=== PATIENT | female | born 1980 ===

== ENCOUNTER 2019-02-28 23:02 | Emergency (ER) | payer OTHER ==
[2019-02-28] MEDS ORDERED: Ondansetron 4 MG/2 ML SDV IVPUSH ONE (23:31)
[2019-02-28] MEDS ORDERED: Sodium Chloride 0.9% 1,000 ML IV ONE (23:31)
--- NOTE | 2019-02-28 23:47 | EDM.PDOC ---
ED HPI GENERAL MEDICAL PROBLEM - General Stated Complaint: PASSING OUT Time Seen by Provider: 02/28/19 23:10 Source of Information: Reports: Patient History Limitations: Reports: No Limitations - History of Present Illness INITIAL COMMENTS - FREE TEXT/NARRATIVE: Patient presented to the ED because of a brief syncopal episode. She was watching her son being stitched and got then she sytarted feeling dizzy and pass out. there was no LOC and patient c/o dizziness and nausea prior to falling down. - Related Data Allergies Allergy/AdvReac Type Severity Reaction Status Date / Time No Known Allergies Allergy Verified 02/28/19 23:40 Home Meds: Home Meds NK [No Known Home Meds] 02/28/19 [History] ED ROS GENERAL - Review of Systems Review Of Systems: See Below Constitutional: Reports: No Symptoms HEENT: Reports: No Symptoms Respiratory: Reports: No Symptoms Cardiovascular: Reports: No Symptoms Endocrine: Reports: No Symptoms GI/Abdominal: Reports: No Symptoms : Reports: No Symptoms Musculoskeletal: Reports: No Symptoms Skin: Reports: No Symptoms Neurological: Reports: No Symptoms Psychiatric: Reports: No Symptoms Hematologic/Lymphatic: Reports: No Symptoms - Physical Exam Exam: See Below Exam Limited By: No Limitations General Appearance: Alert, WD/WN, No Apparent Distress Ears: Normal External Exam, Normal Canal, Hearing Grossly Normal Nose: Normal Inspection, Normal Mucosa, No Blood Throat/Mouth: Normal Inspection, Normal Lips, Normal Teeth Head Exam: Atraumatic, Normocephalic Neck: Normal Inspection, Supple, Non-Tender, Full Range of Motion Respiratory/Chest: No Respiratory Distress, Lungs Clear, Normal Breath Sounds, No Accessory Muscle Use Cardiovascular: Normal Peripheral Pulses, Regular Rate, Rhythm, No Edema, No Gallop, No JVD, No Murmur GI/Abdominal: Normal Bowel Sounds, Soft, Non-Tender, No Organomegaly Back Exam: Normal Inspection, Full Range of Motion Extremities: Normal Inspection, Normal Range of Motion, Non-Tender, No Pedal Edema, Normal Capillary Refill Psychiatric: Normal Affect, Normal Mood, Tearful Skin Exam: Warm Course - Vital Signs Text/Narrative:: labs reviewed and discussed with patient and her . EKG-NSR saline 1 L bolus zofran 4 mg IV x1 Last Recorded V/S: Last Vital Signs Temp Pulse Resp BP Pulse Ox 97 02/28/19 23:10 - Orders/Labs/Meds Orders: Active Orders 24 hr Category Date Time Status EKG Documentation Completion [RC] ASDIRECTED Care 02/28/19 23:12 Ordered Sodium Chloride 0.9% [Normal Saline] 1,000 ml Med 02/28/19 23:31 Active IV .BOLUS EKG 12 Lead [EK] Routine Ther 02/28/19 23:12 Ordered Medication Orders Sodium Chloride (Normal Saline) 1,000 mls @ 999 mls/hr IV .BOLUS ONE Stop: 03/01/19 00:31 Labs: Laboratory Tests 02/28/19 02/28/19 02/28/19 Range/Units 23:20 23:20 23:20 WBC 9.0 (4.5-12.0) X10-3/uL RBC 4.03 (3.23-5.20) x10(6)uL Hgb 12.8 (11.5-15.5) g/dL Hct 37.7 (30.0-51.3) % MCV 93.3 (80-96) fL MCH 31.8 (27.7-33.6) pg MCHC 34.1 (32.2-35.4) g/dL RDW 12.7 (11.5-15.5) % Plt Count 215 (125-369) X10(3)uL MPV 7.7 (7.4-10.4) fL Neut % (Auto) 53.4 (46-82) % Lymph % (Auto) 39.6 H (13-37) % [place] % (Auto) 5.2 (4-12) % Eos % (Auto) 2 (1.0-5.0) % Baso % (Auto) 0 (0-2) % Neut # (Auto) 4.8 (1.6-8.3) # Lymph # (Auto) 3.6 (0.6-5.0) # [place] # (Auto) 0.5 (0.0-1.3) # Eos # (Auto) 0.1 (0.0-0.8) # Baso # (Auto) 0.0 (0.0-0.2) # Sodium 138 (135-145) mmol/L Potassium 3.5 (3.5-5.3) mmol/L Chloride 104 (100-110) mmol/L Carbon Dioxide 26 (21-32) mmol/L BUN 16 (7-18) mg/dL Creatinine 1.1 H (0.55-1.02) mg/dL Est Cr Clr Drug Dosing TNP Estimated GFR (MDRD) 56 L (>60) BUN/Creatinine Ratio 14.5 (9-20) Glucose 101 (80-116) mg/dL Calcium 9.1 (8.6-10.2) mg/dL Troponin I < 0.017 L (<0.017-0.056) ng/mL Meds: Medications Generic Name Dose Route Start Last Admin Trade Name Freq PRN Reason Stop Dose Admin Sodium Chloride 1,000 mls @ 999 mls/hr 02/28/19 23:31 Normal Saline IV 03/01/19 00:31 .BOLUS ONE Discontinued Medications Generic Name Dose Route Start Last Admin Trade Name Freq PRN Reason Stop Dose Admin Ondansetron HCl 4 mg 02/28/19 23:31 Zofran IVPUSH 02/28/19 23:32 ONETIME ONE Departure - Departure Time of Disposition: 00:35 Disposition: Home, Self-Care 01 Condition: Good Clinical Impression: Vasovagal syncope - Discharge Information Instructions: Syncope, [id number] Additional Instructions: please read discharge instructions on vasovagal syncope rest for the night icrease oral fluids follow up as needed - My Orders Last 24 Hours: My Active Orders 02/28/19 23:12 EKG Documentation Completion [RC] ASDIRECTED EKG 12 Lead [EK] Routine 02/28/19 23:31 Sodium Chloride 0.9% [Normal Saline] 1,000 ml IV .BOLUS - Assessment/Plan Last 24 Hours: My Active Orders 02/28/19 23:12 EKG Documentation Completion [RC] ASDIRECTED EKG 12 Lead [EK] Routine 02/28/19 23:31 Sodium Chloride 0.9% [Normal Saline] 1,000 ml IV .BOLUS
[2019-03-01] MEDS ORDERED: Ketorolac 30 MG/ML SDV IVPUSH ONE (00:34)
== END 2019-03-01 00:55 | disposition home or self-care (01) ==
LOC: FB.ED 23:02
DX: R55 Syncope and collapse (principal)
CPT/HCPCS: 36415; 80048; 84484; 85025; 93005; 96361; 96374; 96375; 99284; J1885; J2405; J7030